=== PATIENT | female | born 2000 | race African-American/Black ===

== ENCOUNTER 2024-01-18 10:15 | Emergency (ER) | payer BC, SELFPAY ==
[2024-01-18 10:19] VITALS: BP 135/74; PULSE 92; TEMP 36.8; O2SAT 100; BMI 19.7
--- NOTE | 2024-01-18 10:25 | PC.NURSE ---
right ankle swelling observed, ice pack to site, pt able to move toes to right foot and arrived on personal crutches
--- NOTE | 2024-01-18 10:29 | XR_ITS ---
The [address] [address] Patient Name: JAROD CALLEJAS MRN: [id number] date: 2000 Sex: F Assigned Patient Location: ER Current Patient Location: ER Accession/Order Number: [id number] Exam Date: 01/18/2024 10:48 Report Date: 01/18/2024 11:04 At the request of: SHALOM DONIS Procedure: XR ankle RT min 3V PROCEDURE: XR ankle RT min 3V COMPARISON: None. HISTORY: pain, injury FINDINGS: BONES:Subtle contour deformity identified along the lateral margin of the distal fibula/lateral malleolus this likely is projectional SOFT TISSUES:Moderate soft tissue swelling, medial greater than lateral EFFUSION:Joint effusion OTHER: Negative. XR/XR ankle RT min 3V IMPRESSION: Soft tissue swelling and joint effusion. No definite acute fracture Electronically authenticated by: CATARINO GARCIA Date: 01/18/2024 11:04
--- NOTE | 2024-01-18 11:36 | ED_ITS ---
HPI HPI - General Adult General Chief complaint: Extremity Injury, Lower Stated complaint: LOWER EXTREMITY INJURY Time Seen by Provider: 01/18/24 10:18 Source: patient Mode of arrival: walk-in History of Present Illness HPI narrative: 23-year-old female to the emergency department chief complaint of right ankle pain. Patient reports yesterday she did a roll at [employer] and injured her right ankle. She has had difficulty walking and due to pain. Increased swelling today. No bruising. No history of trauma to this ankle. Took ibuprofen prior to arrival Related Data Allergies Allergy/AdvReac Type Severity Reaction Status Date / Time No Known Drug Allergies Allergy Verified 01/18/24 10:21 Opioid HPI Opioid Management Most Recent Opioid Data: No Data to Display Review of Systems ROS Status of ROS 10 or more systems reviewed and unremark able except as noted in history and below PFSH PFSH Social History Little interest or pleasure in doing things: not at all Feeling down, depressed, or hopeless: not at all Exam Narrative Exam Narrative: Right lower Extremity: DP and PT pulses intact. Limb is similar color and temperature to the contralateral limb. Compartments soft. Positive swelling. No ecchymosis. Positive medial malleolus tenderness. No lateral malleolus tenderness. No tenderness at the base of the fifth metatarsal. No midfoot tenderness. No fibular head tenderness. Able to bear weight with arches maintained. Sensation is intact over the foot and lower leg. Do rsiflexion/plantar flexion, knee flexion/extension, hip flexion/extension are grossly intact by strength testing. Constitutional Vital Signs, click to edit/add: Last Vital Signs Temp 98.3 F 01/18/24 10:19 Pulse 92 H 01/18/24 10:19 Resp 18 01/18/24 10:19 BP 135/74 01/18/24 10:19 Pulse Ox 100 01/18/24 10:19 O2 Del Method Room Air 01/18/24 10:19 Course Vital Signs Vital signs: Vital Signs Temperature 98.3 F 01/18/24 10:19 Pulse Rate 92 H 01/18/24 10:19 Respiratory Rate 18 01/18/24 10:19 Blood Pressure 135/74 01/18/24 10:19 Pulse Oximetry 100 01/18/24 10:19 Oxygen Delivery Method Room Air 01/18/24 10:19 Temperature 98.3 F 01/18/24 10:19 Pulse Rate 92 H 01/18/24 10:19 Respiratory Rate 18 01/18/24 10:19 Blood Pressure 135/74 01/18/24 10:19 Pulse Oximetry 100 01/18/24 10:19 Oxygen Delivery Method Room Air 01/18/24 10:19 Medical Decision Making MDM Narrative Medical decision making narrative: 23-year-old female to the emergency department chief complaint of injury to right ankle. Vital stable, the patient is afebrile. The right lower extremity is neurovascularly intact. An x-ray is ordered and shows no fracture. Severe sprain strain. Will place in a walking boot. Follow-up with podiatry. Return precautions were discussed. All questions were answered. The patient was discharged home. Imaging Data X-ray ankle: Attestation: I have reviewed the pertinent imaging results. Radiologist's impression: ITS Impressions Ankle X-Ray 01/18/24 10:29 IMPRESSION: Soft tissue swelling and joint effusion. No definite acute fracture Electronically authenticated by: CATARINO GARCIA Date: 01/18/2024 11:04 Discharge Plan Discharge Chief Complaint: Extremity Injury, Lower Clinical Impression: Ankle sprain and strain Patient Disposition: Home, Self-Care Time of Disposition Decision: 11:33 Condition: Good Mode of Transportation: Private Vehicle Print Language: Swedish Instructions: Ankle Sprain (ED), Walking Boot (ED) Additional Instructions: Call the office of your primary care doctor to arrange for follow-up within the above-stated timeframe. Your ED visit was focused on your acute issue and does not replace primary care. You should review your labs, imaging, and diagnoses from this ED visit with your primary care physician. There may be non-emergent/ incidental findings that need further evaluation. You should review your vital signs including blood pressure with your PCP. If you were prescribed medications you should discuss possible side-effects and drug interactions with your pharmacist. Call 911 or go to the nearest Emergency Department if you develop any new or worsening symptoms. Wear boot until cleared by podiatry. Referrals: Sean Bowling DPM [Physician] - 1 week Dione Siddiqi NP [Primary Care Provider] - 1 week
== END 2024-01-18 11:46 | disposition home or self-care (01) ==
PROVIDERS: Emergency Provider Student in an Organized Health Care Education/Training Program; PCP Nurse Practitioner Family
DX: S93.401A Sprain of unspecified ligament of right ankle, initial encounter (principal); S96.911A Strain of unspecified muscle and tendon at ankle and foot level, right foot, initial encounter; X50.1XXA Overexertion from prolonged static or awkward postures, initial encounter; Y93.45 Activity, cheerleading
CPT/HCPCS: 73610; 99283

== ENCOUNTER 2024-03-08 20:51 | Emergency (ER) | payer BC, SELFPAY ==
[2024-03-08 20:52] VITALS: BP 109/75; PULSE 68; TEMP 36.6; O2SAT 100; BMI 21.0
--- OUTSIDE RECORDS SUMMARY | 2024-03-08 20:58 | XMS_ITS | CCD ---
Author Organization [facility] Care Team Providers Care Clin Application Specialist Name Role Phone DR NICK VIRGEN Attending Unavailable PROMISE, DR NICK Gannon Consulting Unavailable DR NICK VIRGEN Admitting Unavailable TONY NERI Primary Care Unavailable TONY NERI Attending Unavailable Problems Problem Classification Problem Date Documented Da te Episodic/Chronic Fever of unknown origin (1 source) Fever, unspecified; Translations: [FEVER UNSPECIFIED] Onset: 03-11-2021 Episodic Other upper respiratory infections (4 sources) Acute pharyngitis, unspecified; Translations: [ACUTE PHARYNGITIS UNSPECIFIED] Onset: 03-07-2021 Episodic Viral infection (1 source) COVID-19; Translations: [COVID-19] Onset: 03-11-2021 Results Test Name Value Interpretation Reference Range Facil ity Ambulatory Visit Summaryon 04-03-2023 Ambulatory Visit Summary Ambulatory Visit Summary JAROD CALLEJAS :2000 Visit Date:02/02/2024 Ambulatory Visit Instructions Your Diagnosis Strain of unspecified muscle and tendon at ankle and foot level, right foot, initial encounter BMI 20.0-20.9, adult Nonsmoker Your Care Team Attending Physician - TONY NERI CNP Primary Care Physician - TONY NERI CNP Discharge Vitals Temperature (Tympanic) 37.1 ???C Heart Rate (Peripheral) 83 Respiratory Rate 18 Blood Pressure 106/70 Height 167 cm Height 66 in Weight 57.4 kg Weight 126.545 lb BMI 20.58 Allergies No Known Medication Allergies Problems Ongoing - Any problem that you are currently receiving treatment for. BMI 20.0-20.9, adult Nonsmoker Patient Survey You may receive a survey via text or e-mail asking about your office visit. Please share your experience with us by completing your survey. We appreciate your feedback and thank you for choosing us for your care. Lexus Rodriguez [facility] Family Medicine Office/Clini c Noteon 02-02-2024 Family Medicine Office/Clinic Note Family Medicine Office/Clinic Note Chief Complaint Establish Care HPI Staff New pt. Formerly seen by Tony Neri at different facility. Establish Care: History: Any previous diagnosis: No History of seeing any specialist:No When was your last doctors visit: 2yrs ago Last provider: Tony Neri Any recent labs: no Health Maintenance UTD: Colonoscopy:no Mammogram: no Pelvic/Pap: 04/2023 Acute: Current issues/complaints: Ankle Injury. [facility] ER 01/18/24. Hurt Rt ankle during cheerleading competition. Still some pain. 05/23. History of Present Illness 23 year old patient presents today to re-establish care with this provider from another organization. She states she was seen in the [facility] ED on 01/18/2024 for a sprained ankle. She reports she is doing well and needs a note to return to work. She is no longer wearing the boot that was recommended at the ED. She states she does have some minor tenderness at the outer aspect of the ankle. Her pain at a 3 out of 10. She reports she is using ice occasionally for the pain. Review of Systems PHQ Score Initial Depression Screen Score: 0 SCORE Constitutional: no fever, no chills, no sweats, no weakness Skin: no Jaundice, no rash, no lesions, nopetechiae ENMT: no ear pain, no sore throat, no congestion, no hoarseness Respiratory: no shortness of breath, no cough, no orthopnea, no wheezing Cardiovascular: no chest pain, no palpitations, no edema Gastrointestinal: no nausea, no vomiting, no diarrhea, no GI bleeding Genitourinary: no dysuria, no hematuria, no discharge, no pain Musculoskeletal: no back pain, mild trauma- ankle sprain while practicing for competitive cheerleading Neurologic: no headache, no dizziness, no numbness, no weakness Psychiatric: no sleeping problems, no irritability, no mood swings/depression. Heme/Lymph: no bleeding tendency, no bruising tendency, no petechiae, no swollen nodes Allergy/Immunologic: no seasonal allergies, no food allergies, no recurrent infections, no impaired immunity Additional ROS info: Except as noted in the above Review of Systems and in the History of Present Illness all other systems have been reviewed and are negative or noncontributory. Physical Exam Vitals & Measurements T: 37.1 ???C(Tympanic) HR: 83(Peripheral) RR: 18 BP: 106/70 SpO2: 98% HT: 66 in HT: 167 cm WT: 57.4 kg WT: 126.545 lb BMI: 20.58 General: alert, no acute distress Skin: warm, dry Head: no trauma, normocephalic Neck: Trachea midline, no adenopathy, no tenderness Eye: normal conjunctiva, sclera clear ENMT: TM's clear, oral mucosa moist, no pharyngeal erythema or exudate Cardiovascular: regular rate and rhythm, normal peripheral perfusion Respiratory: Lungs CTA, respirations non labored Chest wall: no deformity. Gastrointestinal: soft, non distended, no tenderness, no guarding. Back: No tenderness, Normal ROM, Normal alignment. Extremities: no deformity, no trauma; right ankle- outer aspect mild edema, limited ROM Neurological: oriented x 4, LOC appropriate for age, CN II-XII intact, motor strength equal & normal bilaterally, sensation equal & normal bilaterally, speech normal Psychiatric: cooperative, affect appropriate for age, normal judgement, normal psychiatric thoughts. Assessment/Plan 1. Strain of unspecified muscle and tendon at ankle and foot level, right foot, initial encounter (S96.911A: Strain of unspecified muscle and tendon at ankle and foot level, right foot, initial encounter) Review of ED reports from [facility] on 01/18/2024 Encouraged to use rozina wrap while working greater than 5 hours Note completed for employer to RTW f/u annually for well exam 2. Encounter to establish care (Z76.89: Persons encountering health services in other specified circumstances) 3. BMI 20.0-20.9, adult (Z68.20: Body mass index [BMI] 20.0-20.9, adult) Normal BMI Encouraged diet as tolerated 4. Nonsmoker (Z78.9: Other specified health status) Encouraged to continue as a non-smoker Follow-up With When Contact Information TONY NERI CNP, FAM Within 1 year [address] [place] [address] [employer] (1) Additional Instructions: Well visit Problem List/Past Medical History Ongoing BMI 20.0-20.9, adult Nonsmoker Historical No qualifying data Medications No active medications Allergies No Known Medication Allergies Social History Alcohol Never., 02/01/2024 Substance Abuse Never., 02/01/2024 Tobacco Never (less than 100 in lifetime) Tobacco Use:. Never Smokeless Tobacco Use:. Household tobacco concerns: No. Yes, 02/02/2024 Family History Family history is negative Immunizations Vaccine Date Status influenza virus vaccine, inactivated 01/14/2019 Recorded meningococcal conjugate vaccine 06/06/2016 Recorded human papillomavirus vaccine 06/06/2016 Recorded varicella virus vaccine 01/10/2013 Recorded meningococcal conjugate vaccine 01/10/2013 Recorded diphtheria/per (more content not included)... [facility] [place] Comment on above: Result Comment: Electronically Signed By : TONY NERI CNP\.br\Date and Time Signed: 02/02/24 11:43 EST Provider Letteron 02-02-2024 Provider Letter Provider Letter February 02, 2024 JAROD CALLEJAS [address] [place] [phone] : 2000 To Whom It May Concern, Please excuse above patient from work. Date of Illness: From: _ To: _ May Return to Work On: Friday February 02, 2024 Restrictions: _None Comments: _ Sincerely, [place] [address] [facility] [place] CULTURE THROATon 03-07-2021 CULTURE THROAT Culture Observations: Gr A Strep faxed to ER/ashley Guzman@/21 /rk Culture Observations: No further testing performed. Isolate 1 Streptococcus pyogenes Light growth of Normal [facility] Comment on above: Performed By: #### SSCRN, [id number] #### [facility] [address] [address] [address] Dionte Nesbitt Covid-19 PCR (CVDTB)on 02-14 SARS-CoV-2 (COVID-19) RNA KELLY+probe Ql (Unsp spec) Detected Critically abnormal NOT DETECTED [facility] Comment on above: Result Comment: This test is not yet fab roved or cleared by the [place] FDA. When there are no FDA-approved or cleared tests available, and other criteria are met, FDA can make tests available under an emergency access mechanism called an Emergency Use Authorization (EUA). The EUA for this test is supported by the [place] of Health and Human Service's (HHS's) declaration that circumstances exist to justify the emergency use of in vitro diagnostics for the detection and/or diagnosis of the virus that causes COVID-19. This EUA will remain in effect (meaning this test can be used) for the duration of the COVID-19 declaration justifying emergency of IVDs, unless it is terminated or revoked by FDA (after which the test may no longer be used). Performed By: #### C VDTBH #### [facility] [address] [address] [address] Dionte Nesbitt STREPT SCREENon 03-07-2021 STREP SCREEN A Negative Normal NEGATIVE [facility] Comment on above: Performed By: #### SSCRN, [id number] #### [facility] [address] [place], [place] [address] Dr. Dionte Nesbitt Encounters Encounter Date Encounter Type Care Provider Facility Start: 02-02-2024 End: 02-02-2024 ambulatory TONY NERI Facility:[facility] Start: 02-01-2024 ambulatory TONY NERI Facility :[facility] Start: 03-07-2021 End: 03-07-[address] NICK VIRGEN Facility: Payers Date Payer Category Payer Unknown [id number] 2000 Unknown [id number] 2000 Unknown [id number] 1959 Self-pay [id number] Summary Purpose Family History No Family History Records FoundNo Family History Records Found Advance Directives No Advanced Directives Records FoundNo Advanced Directives Records Found Additional Source Comments INFORMATION SOURCE (unrecogn ized section and content) DATE CREATED AUTHOR 03/11/2021 [facility] DATE CREATED AUTHOR AUTHOR'S JESUS BLUM 02/03/2024 [facility] FOR RECORDS PERTAINING TO PATIENTS WHO ARE OR HAVE BEEN ENROLLED IN A CHEMICAL DEPENDENCY/SUBSTANCEABUSE PROGRAM, SOME INFORMATION MAY BE OMITTED. This clinical summary was aggregated from multiple sources. Caution should be exercised in using it in the provision of clinical care. This summary normalizes information from multiple sources, and as a consequence, information in this document may materially change the coding, format and clinical context of patient data. In addition, data may be omitted in some cases. CLINICAL DECISIONS SHOULD BE BASED ON THE PRIMARY CLINICAL RECORDS. [employer] provides no warranty or guarantee of the accuracy or completeness of information in this document.
[2024-03-08 21:00] VITALS: PULSE 59
--- NOTE | 2024-03-08 21:09 | ED_ITS ---
HPI - Syncope General Chief Complaint: Syncope Stated Complaint: SYNCOPE Time Seen by Provider: 03/08/24 20:55 Source: patient and family Mode of arrival: ambulance History of Present Illness HPI narrative: Patient presents to ED after a syncopal episode. Patient states she was eating dinner with her family hanging out at her family's house for [employer] and she started to feel hot. She said she felt hot all over and her mom said she kind of put her head down and said I think I am in a pass out. She then did pass out but did not fall or get injured. Her mom and grandma were there with her and just lowered her to the ground and laid her down. She was not waking up so they called 911. Once EMS got there she was waking up and answering questions appropriately. Vital signs are stable. Mom reports when she passed out she was very hot and was sweaty. No seizure activity but her eyes did roll back in her head. She passed out 1 other time in the past in November when she was at a friend's house. She said at that time she did not know that it was can happen it just sort of happened. She does not have any history of cardiac problems. Mom reports that she had panic attacks when she was younger but she has not really had any issues with that recently. Patient denies any chest pain abdominal pain nausea vomiting. No cough or cold symptoms. No UTI symptoms. She is on control. No shortness of breath no pain with breathing no leg swelling or pain. Patient is not hypoxic not tachycardic. No family history of sudden from cardiac arrhythmias. Patient states she pretty much feels back to normal now. She is alert and oriented answering questions appropriately vital signs stable Related Data Home Medications ?Medication ?Instructions ?Recorded ?Confirmed No Known Home Medications 03/08/24 03/08/24 Allergies Allergy/AdvReac Type Severity Reaction Status Date / Time No Known Drug Allergies Allergy Verified 03/08/24 20:52 Review of Systems ROS Status of ROS 10 or more systems reviewed and unremark able except as noted in history and below PFSH PFSH Social History Little interest or pleasure in doing things: not at all Feeling down, depressed, or hopeless: not at all Exam Narrative Exam Narrative: Time Seen: [] Vital Signs: [Per nurse's notes.] General: [Alert] Skin: [Warm, dry, no rash.] Head: [Normocephalic, atraumatic.] Neck: [Supple, trachea midline.] Eye: [Pupils are equal, round and reactive to light, extraocular movements are intact, normal conjunctiva.] Ears, nose, mouth and throat: oral mucosa moist. Cardiovascular: [Regular rate and rhythm, no murmur.] Respiratory: [Lungs are clear to auscultation, respirations are non-labored, breath sounds are equal.] Chest wall: [No tenderness, no deformity.] Gastrointestinal: [Soft, nontender, non distended, normal bowel sounds.] MSK: 5 out of 5 muscle strength x 4 extremities no calf pain or edema Lymphatics: [No lymphadenopathy.] Psychiatric: [Cooperative, appropriate mood & affect.] Neurological: [Alert and oriented to person, place, time, and situation, no focal neurological deficit observed.] Constitutional Vital Signs, click to edit/add: Last Vital Signs Temp 97.9 F 03/08/24 20:52 Pulse 68 03/08/24 20:52 Resp 14 03/08/24 20:52 BP 109/75 03/08/24 20:52 Pulse Ox 100 03/08/24 20:52 O2 Del Method Room Air 03/08/24 20:52 Course Vital Signs Vital signs: Vital Signs Temperature 97.9 F 03/08/24 20:52 Pulse Rate 68 03/08/24 20:52 Respiratory Rate 14 03/08/24 20:52 Blood Pressure 109/75 03/08/24 20:52 Pulse Oximetry 100 03/08/24 20:52 Oxygen Delivery Method Room Air 03/08/24 20:52 Temperature 97.9 F 03/08/24 20:52 Pulse Rate 68 03/08/24 20:52 Respiratory Rate 14 03/08/24 20:52 Blood Pressure 109/75 03/08/24 20:52 Pulse Oximetry 100 03/08/24 20:52 Oxygen Delivery Method Room Air 03/08/24 20:52 MDM - Syncope MDM Narrative Medical decision making narrative: Patient's labs are negative for acute. Her sugar is slightly low and although she said she did eat today maybe she did not eat a lot. Patient is been resting comfortably in the bed no acute distress no lightheadedness no syncope. Vital signs have remained stable. Patient's been on the radiographer cardiac catheterization with no arrhythmias. Patient was instructed to follow-up with cardiology as she may need a Holter monitor in the future. Return to ED if worsening symptoms or any concerns. Patient and family are comfortable with care plan for home. Differential Diagnosis Differential diagnosis: Likely syncope due to orthostatic hypotension, vasovagal syncope, pulmonary embolism and dehydration Lab Data Attestation: I reviewed the patient's lab results. Labs: Lab Results 03/08/24 Range/Units 21:05 WBC 7.8 (4.0-11.0) 10^3/uL RBC 4.35 (4.20-5.40) 10^6/uL Hgb 12.9 (12.0-16.0) g/dL Hct 39.1 (36.0-48.0) % MCV 89.9 (81.0-99.0) fL MCH 29.7 (26.7-34.0) pg MCHC 33.0 (29.9-35.2) g/dL RDW 12.4 (11.0-15.0) % Plt Count 219 (150-450) 10^3/uL MPV 12.1 (9.5-13.5) fL Neut % (Auto) 43.5 (43.0-75.0) % Lymph % (Auto) 45.9 (20.5-60.0) % [place] % (Auto) 7.4 (1.7-12.0) % Eos % (Auto) 2.6 (0.9-7.0) % Baso % (Auto) 0.5 (0.2-2.0) % Neut # (Auto) 3.4 (1.4-6.5) 10^3/uL Lymph # (Auto) 3.6 (1.2-3.8) 10^3/uL [place] # (Auto) 0.6 (0.3-0.8) 10^3/uL Eos # (Auto) 0.2 (0.0-0.7) 10^3/uL Baso # (Auto) 0.0 (0.0-0.1) 10^3/uL Abs Immat Gran (auto) 0.01 (0.00-0.03) 10^3/uL Imm/Tot Granulo (auto) 0.1 (0.0-0.5) % Sodium 140 (136-145) mmol/L Potassium 3.5 (3.5-5.1) mmol/L Chloride 105 (98-107) mmol/L Carbon Dioxide 26.5 (21.0-32.0) mmol/L Anion Gap 12.0 BUN 8.0 (7.0-18.0) mg/dL Creatinine 0.88 (0.55-1.02) mg/dL Est GFR ( Amer) >60 (>=60 mL/min/1.73m^2) Est GFR (Non-Af Amer) >60 (>=60 mL/min/1.73m^2) BUN/Creatinine Ratio 9.1 Glucose 70 L (74-106) mg/dL Calcium 8.7 (8.5-10.1) mg/dL Total Bilirubin 0.5 (0.2-1.0) mg/dL AST 40 H (15-37) U/L ALT 34 (14-59) U/L Alkaline Phosphatase 49 (46-116) U/L Troponin I High Sens <4.0 L (4.0-51.3) pg/mL Total Protein 7.4 (6.4-8.2) g/dL Albumin 3.7 (3.4-5.0) g/dL Globulin 3.7 g/dL Albumin/Globulin Ratio 1.0 Serum HCG, Qual Negative (NEGATIVE) ECG Data Attestation: I personally reviewed and interpreted this ECG as follows: Interpretation: EKG INTERPRETATION Time: [] 2100 Rate: [] 55 Rhythm: _ [] Sinus bradycardia ST segments: _ [] No acute ST elevation or depression T waves: _ [] Ectopy: _ [] P wave/SD interval: _ [] QRS interval: _ [] QT interval: _ [] Comparison: _ [] Comparison EKG date: [] Performed by: [self] no delta wave no Brugada syndrome Discharge Plan Discharge Chief Complaint: Syncope Clinical Impression: Syncope Patient Disposition: Home, Self-Care Time of Disposition Decision: 22:49 Condition: Good Mode of Transportation: Private Vehicle Prescriptions / Home Meds: No Action No Known Home Medications Print Language: [place] Instructions: Syncope (ED) Referrals: Marino Ralph MD [Physician] - 1 week Dione Siddiqi NP [Primary Care Provider] - 1 week
--- NOTE | 2024-03-08 21:32 | ECG_ITS ---
The [facility] Test Date: 2024-03-08 Pat Name: JAROD CALLEJAS Department: Room: - Gender: Female [employer]ational [employer] Director: : 2000 Requested By: [id number] Order Number: [id number] Reading MD: ADE SCHULZ Measurements Intervals [place] Rate: 55 P: 77 CA: 142 QRS: 84 QRSD: 76 T: 76 QT: 422 QTc: 411 Interpretive Statements 1100 Sinus rhythm 9110 normal ECG No previous ECG available for comparison Electronically Signed On 03-09-2024 8:10:03 EST by ADE SCHULZ
[2024-03-08] MEDS: 0.9 % SODIUM CHLORIDE 500 ML IV (21:43)
[2024-03-08 22:13] LABS: Basophils Percent Auto 0.5 % (0.2-2.0); Eosinophils Absolute Auto 0.2 10^3/uL (0.0-0.7); Eosinophils Percent Auto 2.6 % (0.9-7.0); Hematocrit 39.1 % (36.0-48.0); Hemoglobin 12.9 g/dL (12.0-16.0); Immature Granulocytes Abs Auto 0.01 10^3/uL (0.00-0.03); Immature Granulocytes Pct Auto 0.1 % (0.0-0.5); Lymphocytes Absolute Auto 3.6 10^3/uL (1.2-3.8); Lymphocytes Percent Auto 45.9 % (20.5-60.0); Mean Corpuscular Hemoglobin 29.7 pg (26.7-34.0); Mean Corpuscular Volume 89.9 fL (81.0-99.0); Mean Platelet Volume 12.1 fL (9.5-13.5); Monocytes Absolute Auto 0.6 10^3/uL (0.3-0.8); Monocytes Percent Auto 7.4 % (1.7-12.0); Neutrophils Absolute Auto 3.4 10^3/uL (1.4-6.5); Neutrophils Percent Auto 43.5 % (43.0-75.0); Platelet Count 219 10^3/uL (150-450); Red Blood Count 4.35 10^6/uL (4.20-5.40); Red Cell Distribution Width 12.4 % (11.0-15.0); White Blood Count 7.8 10^3/uL (4.0-11.0)
[2024-03-08 22:40] LABS: HCG Qualitative NEGATIVE (NEGATIVE); Internal Control Within Normal Limits
[2024-03-08 22:45] LABS: Alanine Aminotransferase 34 U/L (14-59); Albumin Level 3.7 g/dL (3.4-5.0); Alkaline Phosphatase 49 U/L (46-116); Aspartate Amino Transferase 40 U/L (15-37); BUN Creatinine Ratio 9.1; Bilirubin Total 0.5 mg/dL (0.2-1.0); Calcium 8.7 mg/dL (8.5-10.1); Carbon Dioxide 26.5 mmol/L (21.0-32.0); Chloride 105 mmol/L (98-107); Estimated GFR (African America >60 (>=60 mL/min/1.73m^2); Estimated GFR (Non-African Ame >60 (>=60 mL/min/1.73m^2); Globulin 3.7 g/dL; Glucose 70 mg/dL (74-106); Potassium 3.5 mmol/L (3.5-5.1); Sodium 140 mmol/L (136-145); Total Protein 7.4 g/dL (6.4-8.2)
[2024-03-08 22:47] LABS: Troponin I High Sensitivity <4.0 pg/mL (4.0-51.3)
== END 2024-03-08 23:08 | disposition home or self-care (01) ==
PROVIDERS: Emergency Provider Emergency Medicine; PCP Nurse Practitioner Family
DX: R55 Syncope and collapse (principal)
CPT/HCPCS: 36415; 80053; 84484; 84703; 85025; 93005; 99284